=== PATIENT | male | born 1965 | race Caucasian/White ===

== ENCOUNTER 2024-10-01 15:51 | Emergency (ER) | payer MEDICAID ==
[~2024-10-01] VITALS: Ht 172.7 cm; Wt 95.0 kg
[2024-10-01 15:57] VITALS: TEMP 36.4; O2SAT 95
[2024-10-01] MEDS ORDERED: MECLIZINE 25MG TABLET PO ONE (16:15)
[2024-10-01] MEDS ORDERED: DIPHENHYDRAMINE 50MG/ML VIAL IM ONE (17:00)
[2024-10-01] MEDS ORDERED: OLANZAPINE 10 MG/VIAL IM ONE (17:00)
[2024-10-01] MEDS: MECLIZINE 25MG TABLET PO ONE (17:24)
[2024-10-01 17:40] LABS: BASOPHILS % 0.4 % (0.0-2.0); EOSINOPHILS % 0.4 % (0.0-5.0); HEMATOCRIT. 45.7 % (42.0-52.0); HEMOGLOBIN. 15.1 g/dL (14.0-18.0); MEAN CORPUSCULAR HEMOGLOBIN 30.4 pg (28.0-32.0); MEAN CORPUSCULAR HGB CONC 33.1 g/dL (31.0-37.0); MONOCYTES % 4.3 % (2.0-8.0); NEUTROPHILS % 83.9 % (40.0-76.0); PLATELET 212 x1000/uL (130-400); RED BLOOD CELL COUNT 4.97 mill/uL (4.7-6.1); RED CELL DISTRIBUTION WIDTH 13.4 % (11.6-14.6); WHITE BLOOD COUNT 12.4 x1000/uL (4.5-11.0)
[2024-10-01 17:49] LABS: CHLORIDE 104 mEq/L (98-107); POTASSIUM 4.1 mEq/L (3.5-5.1); SODIUM 141 mEq/L (136-145)
[2024-10-01 17:50] LABS: CALCIUM 9.2 mg/dL (8.7-10.4); CARBON DIOXIDE 28 mEq/L (21-32)
[2024-10-01 17:55] LABS: GLUCOSE 159 mg/dL (70-105); UREA NITROGEN BLOOD 13 mg/dL (9-23)
[2024-10-01 17:56] LABS: PROTHROMBIN TIME 10.6 sec (9.6-11.0); TROPONIN I HIGH SENSITIVITY 4 ng/L (3.0-53)
[2024-10-01 17:57] LABS: ALANINE AMINOTRANSFERASE 35 IU/L (10-49); ALBUMIN 4.2 g/dL (3.2-4.8); ASPARTATE AMINOTRANSFERASE 23 IU/L (<34); BILIRUBIN DIRECT 0.1 mg/dL (<=3.0); BILIRUBIN TOTAL 0.5 mg/dL (0.1-1.0); PROTEIN TOTAL 6.6 g/dL (6.0-8.3)
[2024-10-01] MEDS ORDERED: MECL-299 MT (18:37)
[2024-10-01] MEDS ORDERED: AMLO10TA80 MT (18:37)
[2024-10-01 19:35] VITALS: BP 155/98; PULSE 62; RESP 18; O2SAT 98
== END 2024-10-01 20:16 | disposition home or self-care (01) ==
LOC: ER 15:51
DX: R42 Dizziness and giddiness (principal); I10 Essential (primary) hypertension; Z79.899 Other long term (current) drug therapy
CPT/HCPCS: 99285; 70450; 71045; 80076; 80048; 83880; 83690; 83735; 85025; 85610; 84484; 36415; 93005; J8597